=== PATIENT | male | born 1945 ===

== ENCOUNTER → 2018-08-29 12:00 | Day surgery (SDC) | payer OTHER ==
[2018-08-29 12:23] VITALS: BP 171/81
[2018-08-29 14:47] LABS: Body Fluid Source Pleural Fluid
[2018-08-29 15:54] LABS: Body Fluid Mono 15 %
--- NOTE | 2018-08-29 18:52 | PRO ---
THORACENTESIS REPORT: DATE OF PROCEDURE: 08/29/18 PROCEDURE PERFORMED: Ultrasound-guided thoracentesis on the left side. PRE-PROCEDURAL DIAGNOSIS: Moderate left pleural effusion with loculations. ANESTHESIA: Local anesthesia with 1% lidocaine. DESCRIPTION OF PROCEDURE: Informed consent was obtained from the patient prior to the procedure after all the risks and benefits were thoroughly explained including risk of pneumothorax. The patient was sitting up and leaning forward during the procedure. All barrier techniques were followed. A portable ultrasound was utilized at the bedside to localize loculated left pleural effusion. Area was disinfected with chlorhexidine. Sterile drape was applied. Lidocaine 1% was then instilled into the pleural space subcutaneously intradermally taking precautions. A #11 scalpel blade was used to make stab incision. [employer]usion 8-Mexican thoracentesis catheter was then inserted under manual suction taking precautions. Catheter was left in place and needle was removed; 200 mL of dark blood-stained fluid was removed under manual suction. No further fluid was coming out and the catheter was subsequently removed. A sterile Band-Aid was applied on the area. Fluid was sent for cytochemical, biological and hematological examination. Postprocedure chest x-ray was performed and verified by me with no evidence of pneumothorax. [id number]/[facility] #: [id number] DICK
[2018-08-30 15:29] LABS: Lactate Dehydrogenase, BF 277 U/L
== END | disposition home or self-care (01) ==
LOC: OR 12:00
PROVIDERS: ATTEND Internal Medicine
DX: J90 Pleural effusion, not elsewhere classified (principal); Z87.891 Personal history of nicotine dependence; I25.10 Atherosclerotic heart disease of native coronary artery without angina pectoris; Z95.1 Presence of aortocoronary bypass graft; I10 Essential (primary) hypertension; E78.5 Hyperlipidemia, unspecified; Z79.01 Long term (current) use of anticoagulants
CPT/HCPCS: 32554; 36415; 71045; 76604; 83615; 83986; 84157; 87070; 87205; 88112; 88305; 89051